=== PATIENT | female | born 1940 | race Caucasian/White ===

== ENCOUNTER 2016-05-22 23:55 | Emergency (ER) | payer MEDICARE ==
[~2016-05-22] VITALS: Ht 162.6 cm; Wt 61.8 kg
[2016-05-23 00:05] VITALS: BP 185/83; PULSE 81; RESP 16; TEMP 97.7; O2SAT 95
--- NOTE | 2016-05-23 00:10 | PD ---
HPI Chief Complaint: fall Time Seen by Provider: 00:05 Travel History International Travel<30 days: No Contact w/Intl Traveler<30days: No Traveled to known affect area: No History of Present Illness HPI 76-year-old female presents to the emergency department by EMS transport from home where family members reportedly found her on the ground after an unwitnessed fall. Unknown if she had brief loss of consciousness. Patient was awake upon their assessment of her but seemed stunned and had to be asked questions several times before she answered them. Patient reportedly was in the presence of her family had been drinking alcohol according to EMS report the family states they left her presents for approximately 30 seconds and when they returned they found her face down on the ground outside her house where they had left her previously and reportedly had been fine. Patient here is repetitive with her questioning sometimes cursing but states that she has no allergies takes multiple medications and denies any head pain facial pain dental pain neck pain does not report any upper extremity or lower extremity numbness tingling or weakness and is able to move her extremities purposefully. [facility] Past Medical History Narrative Medical Hypertension, fibromyalgia, diabetes, alcohol use, tobacco use; nursing notes reviewed Social History Tobacco Use: Yes Allergies-Medications (Allergen,Severity, Reaction): Coded Allergies: No Known Allergies (Unverified , 05/23/16) Reported Meds & Prescriptions Reported Meds & Active Scripts Active Reported Lisinopril 30 Mg Tab 30 Mg PO DAILY Metoprolol Tartrate 25 Mg Tab 25 Mg PO BID Metformin (Metformin HCl) 500 Mg Tab 500 Mg PO DAILY With a meal Review of Systems Except as stated in HPI: all other systems reviewed are Neg General / Constitutional: No: Fever Eyes: No: Visual changes HENT: Positive: Headaches, No: Neck Pain Cardiovascular: No: Chest Pain or Discomfort Respiratory: No: Shortness of Breath Gastrointestinal: No: Vomiting, Abdominal Pain Genitourinary: No: Flank Pain Musculoskeletal: No: Myalgias, Arthralgias Skin: Positive Other (facial abrasions/contusion), No Rash Neurologic: No: Weakness, Dizziness, Syncope Psychiatric: No: Anxiety Hematologic/Lymphatic: No: Easy Bruising Physical Exam Narrative GENERAL: Well-developed well-nourished female presents with backboard C-spine immobilization; GCS: 15 SKIN: Warm and dry. HEAD: Atraumatic. Normocephalic. EYES: Pupils equal and round. No scleral icterus. No injection or drainage. No periorbital rim bony crepitus or step-off bilaterally soft tissue swelling to the right eyebrow and forehead and cheek with superficial abrasions ENT: No nasal bleeding or discharge. Mucous membranes pink and moist. Airway is patent. Dentition intact. Upper lip laceration 1 cm buccal surface. NECK: Trachea midline. No JVD. Nontender to direct palpation along the cervical spine cervical immobilization maintained and collar In place CARDIOVASCULAR: Regular rate and rhythm. Chest wall: Nontender to direct palpation. RESPIRATORY: No accessory muscle use. Clear to auscultation. Breath sounds equal bilaterally. GASTROINTESTINAL: Abdomen soft, non-tender, nondistended. Hepatic and splenic margins not palpable. MUSCULOSKELETAL: Extremities without clubbing, cyanosis, or edema. No obvious deformities. Pelvic rock stable. Patient log rolled from backboard with maintain spinal immobilization no tenderness to direct palpation along the thoracic or lumbar spine no ecchymosis or abrasions noted and no flank tenderness to percussion. NEUROLOGICAL: Awake and alert. No obvious cranial nerve deficits. Motor grossly within normal limits. Five out of 5 muscle strength in the arms and legs. Normal speech. PSYCHIATRIC: Appropriate mood and affect; insight and judgment normal. Data Data Last Documented VS Vital Signs Date Time Temp Pulse Resp B/P Pulse Ox O2 Delivery O2 Flow Rate FiO2 05/23/16 00:05 97.7 81 16 185/83 95 Orders Electrocardiogram (05/23/16 00:05) Basic Metabolic Panel (Bmp) (05/23/16 00:05) Complete Blood Count With Diff (05/23/16 00:05) Magnesium (Mg) (05/23/16 00:05) Troponin I (05/23/16 00:05) Act Partial Throm Time (Ptt) (05/23/16 00:05) Prothrombin Time / Inr (Pt) (05/23/16 00:05) Urinalysis - C+S If Indicated (05/23/16 00:05) Ct Brain W/O Iv Contrast(Rout) (05/23/16 00:05) Ct Cerv Spine W/O Contrast (05/23/16 00:05) Blood Glucose (05/23/16 00:05) Ecg Monitoring (05/23/16 00:05) Iv Access Insert/Monitor (05/23/16 00:05) Oximetry (05/23/16 00:05) Ct Facial Bones W/O Iv Cont (05/23/16 ) Alcohol (Ethanol) (05/23/16 00:05) Tetanus/Diphtheria Tox Adult (Tetanus/Di (05/23/16 02:30) Labs Laboratory Tests Test 05/23/16 00:30 White Blood Count 10.6 TH/MM3 Red Blood Count 4.61 MIL/MM3 Hemoglobin 14.0 GM/DL Hematocrit 40.2 % Mean Corpuscular Volume 87.1 FL Mean Corpuscular Hemoglobin 30.3 PG Mean Corpuscular Hemoglobin 34.8 % Concent Red Cell Distribution Width 13.8 % Platelet Count 234 TH/MM3 Mean Platelet Volume 7.2 FL Neutrophils (%) (Auto) 65.6 % Lymphocytes (%) (Auto) 26.2 % Monocytes (%) (Auto) 6.4 % Eosinophils (%) (Auto) 1.7 % Basophils (%) (Auto) 0.1 % Neutrophils # (Auto) 6.9 TH/MM3 Lymphocytes # (Auto) 2.8 TH/MM3 Monocytes # (Auto) 0.7 TH/MM3 Eosinophils # (Auto) 0.2 TH/MM3 Basophils # (Auto) 0.0 TH/MM3 CBC Comment DIFF FINAL Differential Comment Prothrombin Time 10.0 SEC Prothromb Time International 0.9 RATIO Ratio Activated Partial 24.3 SEC Thromboplast Time Urine Color COLORLESS Urine Turbidity CLEAR Urine pH 5.0 Urine Specific [place] 1.006 Urine Protein NEG mg/dL Urine Glucose (UA) NEG mg/dL Urine Ketones NEG mg/dL Urine Occult Blood NEG Urine Nitrite NEG Urine Bilirubin NEG Urine Urobilinogen LESS THAN 2.0 MG/DL Urine Leukocyte Esterase NEG Urine RBC LESS THAN 1 /hpf Urine WBC 1 /hpf Urine Squamous Epithelial 1 /hpf Cells Urine Amorphous Sediment RARE Microscopic Urinalysis Comment CULT NOT INDICATED Sodium Level 136 MEQ/L Potassium Level 4.5 MEQ/L Chloride Level 100 MEQ/L Carbon Dioxide Level 23.6 MEQ/L Anion Gap 12 MEQ/L Blood Urea Nitrogen 22 MG/DL Creatinine 1.14 MG/DL Estimat Glomerular Filtration 46 ML/MIN Rate Random Glucose 103 MG/DL Calcium Level 8.3 MG/DL Magnesium Level 2.1 MG/DL Troponin I LESS THAN 0.02 NG/ML Ethyl Alcohol Level 216 MG/DL MDM Medical Decision Making Medical Screen Exam Complete: Yes Emergency Medical Condition: Yes Medical Record Reviewed: Yes Interpretation(s) EKG: Normal sinus rhythm rate [address] elevation age-indeterminate QS septally Serum alcohol: 216, elevated Troponin I: Less than 0.02, not elevated Urinalysis: Values in normal range Last Impressions Head CT 05/23/16 0005 Signed Impressions: Service Date/Time: Monday, May 23, 2016 00:55 - CONCLUSION: No acute disease. Rigoberto West MD Cervical Spine CT 05/23/16 0005 Signed Impressions: Service Date/Time: Monday, May 23, 2016 00:56 - CONCLUSION: 1. No acute fractures are seen. 2. Atherosclerosis. 3. Left thyroid nodule. Rigoberto West MD Maxillofacial CT 05/23/16 0000 Signed Impressions: Service Date/Time: Monday, May 23, 2016 00:57 - CONCLUSION: No fractures. Right periorbital soft tissue swelling. Rigoberto West MD CBC & BMP Diagram 05/23/16 00:30 Vital Signs Date Time Temp Pulse Resp B/P Pulse Ox O2 Delivery O2 Flow Rate FiO2 05/23/16 00:05 97.7 81 16 185/83 95 Differential Diagnosis Syncope, arrhythmia, occult intoxication, minor CHI, ICH, facial contusion, facial fracture, dental injury, laceration, cervical spine sprain strain fracture cord compression, ACS Narrative Course Patient placed on campus monitor IV access obtained patient log rolled from backboard with maintain spinal immobilization cervical collar In place. Cervical collar In place patient is aware of plan for imaging study Lab values found to be in normal range except for alcohol level [id number] EKG reveals no acute injury pattern CT brain noncontrast cervical spine noncontrast facial bones noncontrast revealed no acute traumatic abnormalities At 2:18 AM cervical collar removed by me Patient with granddaughter are at bedside informed of lab results and imaging results. Granddaughter is adult and states will take [facility] responsibility for her grandmother. Is aware that patient needs tetanus booster and lip laceration repair prior to discharge. Patient is encouraged to discontinue alcohol consumption and to not drink any alcoholic beverages for the next 24 hours. Granddaughter is aware that grandmother/patient will need head injury precautions followed/monitored for 24 hours. Critical Care Narrative Aggregate critical care time was 35 minutes. Time to perform other separately billable procedures was not included in the critical care time. My time did not include minutes spent treating any other patients simultaneously or on activities that did not directly contribute to the patient's treatment. The services I provided to this patient were to treat and/or prevent clinically significant deterioration that could result in: Intracranial hemorrhage, cervical cord compression, arrhythmia, I provided critical care services requiring my management, as noted below: Chart data review, documentation time, medication orders and management, vital sign assessments/reviewing monitor data, ordering and reviewing lab tests, ordering and interpreting/reviewing x-rays and diagnostic studies, care of the patient and discussion of the patient with the admitting physicians. Diagnosis Primary Impression: Minor head injury Qualified Code: S00.90XA - Minor head injury, initial encounter Additional Impressions: Alcohol intoxication Facial contusion Qualified Code: S00.83XA - Facial contusion, initial encounter Lip laceration Qualified Code: S01.511A - Lip laceration, initial encounter Referrals: Primary Care Physician call for appointment Patient Instructions: General Instructions Additional Instructions: Do not drink alcoholic beverages Increase fluid hydration without drinking alcoholic beverages Apply ice pack intermittently to areas of soft tissue swelling for the first 12- 24 hours Keep abrasions clean and dry apply topical antibiotic as tolerated May use warm saltwater swishes and sparingly apply dilute hydrogen peroxide to lip laceration as needed Follow-up with primary care provider Follow head injury precautions 24 hours Return to the emergency department for any concerns or change in condition Follow-up with your primary care provider call office in a.m. to schedule follow -up appointment Disposition: DISCHARGE HOME Condition: Stable Janell Patel MD May 23, 2016 00:10
[2016-05-23] MEDS ORDERED: METO25TA3 PO (00:16)
[2016-05-23] MEDS ORDERED: LISI30TA4 PO (00:16)
[2016-05-23] MEDS ORDERED: METF500T PO (00:16)
[2016-05-23 00:54] LABS: AUTOMATED NEUTROPHIL # 6.9 TH/MM3 (1.8-7.7); BASOPHIL % 0.1 % (0.0-2.0); EOSINOPHIL # 0.2 TH/MM3 (0-0.4); EOSINOPHIL % 1.7 % (0.0-4.0); HEMATOCRIT 40.2 % (35.0-46.0); HEMO FLAGS DIFF FINAL; LYMPH % 26.2 % (9.0-44.0); LYMPHOCYTE # 2.8 TH/MM3 (1.0-4.8); MEAN CELL VOLUME 87.1 FL (80.0-100.0); MEAN CORPUSCULAR HEMOGLOBIN 30.3 PG (27.0-34.0); MEAN CORPUSCULAR HGB CONC 34.8 % (32.0-36.0); MONO % 6.4 % (0.0-8.0); NEUT % 65.6 % (16.0-70.0); PLATELET COUNT 234 TH/MM3 (150-450); RED BLOOD COUNT 4.61 MIL/MM3 (4.00-5.30); RED CELL DISTRIBUTION WIDTH 13.8 % (11.6-17.2); WHITE BLOOD COUNT 10.6 TH/MM3 (4.0-11.0)
[2016-05-23 01:06] LABS: APTT (PATIENT) 24.3 SEC (24.3-30.1); INTERNATIONAL NORMALIZED RATIO 0.9 RATIO
[2016-05-23 01:08] LABS: BLOOD, URINE NEG (NEG); GLUCOSE,URINE NEG (NEG); KETONE, URINE NEG (NEG); NITRITE,URINE NEG (NEG); SQUAMOUS EPITHELIAL CELL URINE 1 /hpf (0-5); URINE COLOR COLORLESS (YELLW/STRAW)
[2016-05-23 01:10] LABS: COMMENT (UR) CULT NOT INDICATED; CULTURE IF INDICATED CULT NOT INDICATED
--- NOTE | 2016-05-23 01:14 | RADRPT ---
EXAM DATE/TIME: 05/23/2016 00:55 [facility] COMPARISON: No previous studies available for comparison. INDICATIONS : Trauma; fall, found face down. RADIATION DOSE: 56.35 CTDIvol (mGy) MEDICAL HISTORY : Hypertension. Diabetes mellitus type 2. Fibromyalgia. SURGICAL HISTORY : None. ENCOUNTER: Initial ACUITY: 1 day PAIN SCALE: 3/10 LOCATION: cranial TECHNIQUE: Multiple contiguous axial images were obtained of the head. Using automated exposure control and adj ustment of the mA and/or kV according to patient size, radiation dose was kept as low as reasonably a chievable to obtain optimal diagnostic quality images. FINDINGS: First mild atrophy and patchy white matter disease. No signs of acute infarct, intracranial hemorrhag e, or mass. No fractures are seen. CONCLUSION: No acute disease. Rigoberto West MD on May 23, 2016 at 1:12 Board Certified Radiologist. This report was verified electronically.
--- NOTE | 2016-05-23 01:15 | RADRPT ---
EXAM DATE/TIME: 05/23/2016 00:57 [facility] COMPARISON: CT CERVICAL SPINE W/O CONTRAST, May 23, 2016, 0:56. CT BRAIN W/O CONTRAST, May 23, 2016, 0:55. INDICATIONS : Trauma; fall, found face down. Swelling to mouth. RADIATION DOSE: 21.96 CTDIvol (mGy) MEDICAL HISTORY : Hypertension. Diabetes mellitus type 2. Fibromyalgia. SURGICAL HISTORY : None. ENCOUNTER: Initial ACUITY: 1 day PAIN SCORE: 3/10 LOCATION: facial TECHNIQUE: Volumetric scanning of the facial bones was performed. Using automated exposure control and adjustme nt of the mA and/or kV according to patient size, radiation dose was kept as low as reasonably achiev able to obtain optimal diagnostic quality images. FINDINGS: ORBITS: The orbital and infraorbital osseous structures are intact. The retroconal structures have a normal configuration. No radiopaque foreign bodies are seen. NASAL BONE: The nasal bone and maxillary spine are intact ZYGOMATIC ARCHES: Symmetric without evidence of fracture. SINUSES: The maxillary, ethmoid and frontal sinuses are intact. No air-fluid levels seen. NASAL CAVITY: The nasal septum is intact and midline. The lacrimal ducts are intact. SOFT TISSUES: No foreign bodies. Right lateral periorbital soft tissue swelling. INTRACRANIAL: No intracranial air seen. CRIBIFORM PLATE: Grossly intact. CONCLUSION: No fractures. Right periorbital soft tissue swelling. Rigoberto West MD on May 23, 2016 at 1:13 Board Certified Radiologist. This report was verified electronically.
--- NOTE | 2016-05-23 01:18 | RADRPT ---
EXAM DATE/TIME: 05/23/2016 00:56 [facility] COMPARISON: CT FACIAL BONES W/O CONTRAST, May 23, 2016, 0:57. CT BRAIN W/O CONTRAST, May 23, 2016, 0:55. INDICATIONS : Trauma; fall, found face down. RADIATION DOSE: 24.00 CTDIvol (mGy) MEDICAL HISTORY : Hypertension. Diabetes mellitus type 2. Fibromyalgia. SURGICAL HISTORY : None. ENCOUNTER: Initial ACUITY: 1 day PAIN SCALE: 3/10 LOCATION: neck TECHNIQUE: Volumetric scanning of the cervical spine was performed. Multiplanar reconstructions in the sagittal, coronal and oblique axial planes were performed. Using automated exposure control and adjustment o f the mA and/or kV according to patient size, radiation dose was kept as low as reasonably achievable to obtain optimal diagnostic quality images. FINDINGS: Straightening of the cervical lordosis. Grade 1 anterolisthesis of C4 on C5 noted. No prevertebral so ft tissue swelling. Moderate disc space narrowing at C5-6 with anterior osteophyte formation. Mild mu ltilevel facet hypertrophic changes are seen. There is mild superior endplate compression deformity a t the T2 vertebral body level identified which appears nonacute. The odontoid process is intact. Ther e are severe emphysematous changes seen. There is a hypodense left thyroid nodule measuring 2.1 cm. C arotid artery calcifications are noted. CONCLUSION: 1. No acute fractures are seen. 2. Atherosclerosis. 3. Left thyroid nodule. Rigoberto West MD on May 23, 2016 at 1:15 Board Certified Radiologist. This report was verified electronically.
[2016-05-23 01:35] LABS: ANION GAP 12 MEQ/L (5-15); BICARBONATE 23.6 MEQ/L (21.0-32.0); BLOOD UREA NITROGEN 22 MG/DL (7-18); CHLORIDE 100 MEQ/L (98-107); GLOMERULAR FILTRATION RATE 46 ML/MIN (>89); MAGNESIUM 2.1 MG/DL (1.5-2.5); POTASSIUM 4.5 MEQ/L (3.5-5.1); SODIUM (NA) 136 MEQ/L (136-145)
[2016-05-23] MEDS ORDERED: TETANUS/DIPHTHERIA TOXOID ADULT 0.5 ML VIAL IM ONE (02:30)
--- NOTE | 2016-05-23 02:44 | PD ---
Physical Exam Date Seen by Provider: May 23, 2016 Time Seen by Provider: 02:42 Narrative The patient has a 1 cm laceration to the upper lip from the dry vermilion into the wet vermilion. There is no injury to the vermilion border. No foreign bodies. Data Data Last Documented VS Vital Signs Date Time Temp Pulse Resp B/P Pulse Ox O2 Delivery O2 Flow Rate FiO2 05/23/16 00:05 97.7 81 16 185/83 95 Orders Electrocardiogram (05/23/16 00:05) Basic Metabolic Panel (Bmp) (05/23/16 00:05) Complete Blood Count With Diff (05/23/16 00:05) Magnesium (Mg) (05/23/16 00:05) Troponin I (05/23/16 00:05) Act Partial Throm Time (Ptt) (05/23/16 00:05) Prothrombin Time / Inr (Pt) (05/23/16 00:05) Urinalysis - C+S If Indicated (05/23/16 00:05) Ct Brain W/O Iv Contrast(Rout) (05/23/16 00:05) Ct Cerv Spine W/O Contrast (05/23/16 00:05) Blood Glucose (05/23/16 00:05) Ecg Monitoring (05/23/16 00:05) Iv Access Insert/Monitor (05/23/16 00:05) Oximetry (05/23/16 00:05) Ct Facial Bones W/O Iv Cont (05/23/16 ) Alcohol (Ethanol) (05/23/16 00:05) Tetanus/Diphtheria Tox Adult (Tetanus/Di (05/23/16 02:30) Labs Laboratory Tests Test 05/23/16 00:30 White Blood Count 10.6 TH/MM3 Red Blood Count 4.61 MIL/MM3 Hemoglobin 14.0 GM/DL Hematocrit 40.2 % Mean Corpuscular Volume 87.1 FL Mean Corpuscular Hemoglobin 30.3 PG Mean Corpuscular Hemoglobin 34.8 % Concent Red Cell Distribution Width 13.8 % Platelet Count 234 TH/MM3 Mean Platelet Volume 7.2 FL Neutrophils (%) (Auto) 65.6 % Lymphocytes (%) (Auto) 26.2 % Monocytes (%) (Auto) 6.4 % Eosinophils (%) (Auto) 1.7 % Basophils (%) (Auto) 0.1 % Neutrophils # (Auto) 6.9 TH/MM3 Lymphocytes # (Auto) 2.8 TH/MM3 Monocytes # (Auto) 0.7 TH/MM3 Eosinophils # (Auto) 0.2 TH/MM3 Basophils # (Auto) 0.0 TH/MM3 CBC Comment DIFF FINAL Differential Comment Prothrombin Time 10.0 SEC Prothromb Time International 0.9 RATIO Ratio Activated Partial 24.3 SEC Thromboplast Time Urine Color COLORLESS Urine Turbidity CLEAR Urine pH 5.0 Urine Specific [place] 1.006 Urine Protein NEG mg/dL Urine Glucose (UA) NEG mg/dL Urine Ketones NEG mg/dL Urine Occult Blood NEG Urine Nitrite NEG Urine Bilirubin NEG Urine Urobilinogen LESS THAN 2.0 MG/DL Urine Leukocyte Esterase NEG Urine RBC LESS THAN 1 /hpf Urine WBC 1 /hpf Urine Squamous Epithelial 1 /hpf Cells Urine Amorphous Sediment RARE Microscopic Urinalysis Comment CULT NOT INDICATED Sodium Level 136 MEQ/L Potassium Level 4.5 MEQ/L Chloride Level 100 MEQ/L Carbon Dioxide Level 23.6 MEQ/L Anion Gap 12 MEQ/L Blood Urea Nitrogen 22 MG/DL Creatinine 1.14 MG/DL Estimat Glomerular Filtration 46 ML/MIN Rate Random Glucose 103 MG/DL Calcium Level 8.3 MG/DL Magnesium Level 2.1 MG/DL Troponin I LESS THAN 0.02 NG/ML Ethyl Alcohol Level 216 MG/DL MDM Medical Record Reviewed: Yes Supervised Visit with ELIANA: Yes Differential Diagnosis MDM: High Differential diagnoses: Fracture, sprain, strain, dislocation, contusion, neurovascular injury Narrative Course Patient's laceration is closed with 5-0 Vicryl Procedures Procedure Narrative LACERATION LOCATION: Left upper lip LENGTH: 1 cm NUMBER OF STITCHES/RUTH: 2 REPAIR: The area of the laceration was prepped with Betadine and sterilely draped. The laceration was infiltrated with 1% lidocaine with epinephrine. The wound was copiously irrigated and explored without evidence of foreign body , tendon injury or neurovascular injury. The wound was closed using 5-0 Vicryl. This was a simple single layer repair. Patient tolerated the procedure well. Diagnosis Primary Impression: Minor head injury Qualified Code: S00.90XA - Minor head injury, initial encounter Additional Impressions: Alcohol intoxication Lip laceration Qualified Code: S01.511A - Lip laceration, initial encounter Facial contusion Qualified Code: S00.83XA - Facial contusion, initial encounter Condition: Stable Andrew Vega May 23, 2016 02:44
--- NOTE | 2016-05-23 14:30 | EKG ---
Date Performed: 05/23/2016 Time Performed: 00:23:17 PTAGE: 76 years EKG: Sinus rhythm SEPTAL MYOCARDIAL INFARCTION ABNORMAL ECG NO PREVIOUS TRACING DOCTOR: Arsen Rosado Interpretating Date/Time 05/23/2016 14:29:24
== END 2016-05-23 04:00 | disposition home or self-care (01) ==
LOC: NEPC 23:55
DX: S09.90XA Unspecified injury of head, initial encounter (principal); S01.511A Laceration without foreign body of lip, initial encounter; S00.83XA Contusion of other part of head, initial encounter; F10.129 Alcohol abuse with intoxication, unspecified; R94.31 Abnormal electrocardiogram [ECG] [EKG]; M79.7 Fibromyalgia; I10 Essential (primary) hypertension; E11.9 Type 2 diabetes mellitus without complications; W19.XXXA Unspecified fall, initial encounter; Y92.007 Garden or yard of unspecified non-institutional (private) residence as the place of occurrence of the external cause; Y90.7 Blood alcohol level of 200-239 mg/100 ml; Z72.0 Tobacco use
CPT/HCPCS: 12011; 70450; 70486; 72125; 80048; 80307; 81001; 83735; 84484; 85025; 85610; 85730; 90471; 90714; 93005